=== PATIENT | female | born 1990 | race Caucasian/White ===

== ENCOUNTER 2020-04-09 19:04 | Emergency (ER) | payer OTHER ==
--- NOTE | 2020-04-09 20:02 | ER Document Report ---
ED Medical Screen (RME) - General Chief Complaint: Vaginal Bleeding Stated Complaint: VAGINAL BLEEDING Time Seen by Provider: 04/09/20 19:53 - HPI Notes: 04/09/20 20:01 29-year-old female to the emergency department with complaints of vaginal bleeding that started this afternoon at approximately 3 PM. She states it was light at first and then it got a lot heavier. She is having right-sided pelvic pain with this. She states that she has had 4+ tests at home. She has not seen an [facility]. She states her last menstrual period was on March 08. She is never been before. She has been taking prenatals because she and her partner have been trying to get . I performed a brief medical screening exam on the patient determined that the patient needs further evaluation and management by main side provider. I have placed initial orders to help expedite care. Past Medical History - Social History Chew tobacco use (# tins/day): No Frequency of alcohol use: None Drug Abuse: None Physical Exam - Vital signs Vitals: Temp Pulse Resp BP Pulse Ox 98.4 F 71 20 111/52 L 100 04/09/20 19:59 04/09/20 19:59 04/09/20 19:59 04/09/20 19:59 04/09/20 19:59 Course - Vital Signs Vital signs: Temp Pulse Resp BP Pulse Ox 98.4 F 71 20 111/52 L 100 04/09/20 19:59 04/09/20 19:59 04/09/20 19:59 04/09/20 19:59 04/09/20 19:59
[2020-04-09 20:40] LABS: ABSOLUTE MONOCYTES (AUTO) 0.4 10^3/uL (0.1-1.4); HEMOGLOBIN 11.7 g/dL (12.0-15.5); MEAN CORPUSCULAR HGB CONC 33.1 g/dL (32.0-36.0); TOTAL CELLS COUNTED % (AUTO) 100 %
[2020-04-09 20:45] LABS: ABSOLUTE LYMPHOCYTES (AUTO) 2.3 10^3/uL (0.5-4.7); ABSOLUTE NEUT (AUTO) 3.1 10^3/uL (1.7-8.2); BASOPHILS % (AUTO) 0.4 % (0-2); EOSINOPHILS % (AUTO) 0.8 % (0-6); HEMATOCRIT 35.2 % (36.0-47.0); MEAN CORPUSCULAR HEMOGLOBIN 26.6 pg (27.0-33.4); MEAN CORPUSCULAR VOLUME 80 fl (80-97); MONOCYTES % (AUTO) 6.1 % (3-13); PLATELET COUNT 315 10^3/uL (150-450); RED BLOOD COUNT 4.38 10^6/uL (3.72-5.28); RED CELL DISTRIBUTION WIDTH 13.7 % (11.5-14.0); SEGMENTED NEUTROPHILS % (AUTO) 52.7 % (42-78); WHITE BLOOD COUNT 5.8 10^3/uL (4.0-10.5)
[2020-04-09 21:04] LABS: ALBUMIN 4.4 g/dL (3.5-5.0); ALKALINE PHOSPHATASE 58 U/L (38-126); ANION GAP 8 (5-19); ASPARTATE AMINO TRANSFERASE 39 U/L (14-36); BILIRUBIN,DIRECT 0.2 mg/dL (0.0-0.4); BILIRUBIN,TOTAL 0.4 mg/dL (0.2-1.3); BLOOD UREA NITROGEN 10 mg/dL (7-20); CALCIUM 9.4 mg/dL (8.4-10.2); CARBON DIOXIDE 25 mmol/L (22-30); CHLORIDE 106 mmol/L (98-107); GLUCOSE 95 mg/dL (75-110); TOTAL PROTEIN 7.1 g/dL (6.3-8.2)
--- NOTE | 2020-04-09 21:21 | RADIOLOGY REPORT (SQ) ---
EXAM DESCRIPTION: US TRANSVAGINAL COMPLETED DATE/TME: 04/09/2020 20:00 CLINICAL HISTORY: 29 years, Female, vaginal bleeding, + home test COMPARISON: None TECHNIQUE: Transabdominal and transvaginal images of the pelvis were obtained. Grayscale imaging and Doppler imaging were performed. LIMITATIONS: None. FINDINGS: Uterus measures approximately 7.1 x 4.6 x 3.3 cm and appears within normal limits. There is no intrauterine gestation identified. Endometrial stripe appears relatively homogenous and measures 6 mm in thickness. There is a small amount of fluid within the endocervical canal. Right ovary is nonvisualized, likely obscured by bowel gas. Left ovary measures approximately 2.2 x 1.7 x 1.3 cm and appears within normal limits. There is no evidence of left ovarian torsion on Doppler imaging. No adnexal mass or free pelvic fluid is seen. IMPRESSION: No intrauterine gestation. Endometrial stripe thickness is 6 mm. There is no adnexal mass. There is a small amount of fluid within the endocervical canal, nonspecific. copyright 2010 [employer]- All Rights Reserved
[2020-04-09 21:46] LABS: APPEARANCE,URINE CLEAR; BILIRUBIN,URINE NEGATIVE (NEGATIVE); COLOR,URINE YELLOW; GLUCOSE, URINE NEGATIVE (NEGATIVE); KETONES,URINE NEGATIVE (NEGATIVE); PROTEIN,URINE NEGATIVE (NEGATIVE); URINE SPECIFIC GRAVITY 1.011; UROBILINOGEN,URINE NEGATIVE mg/dL (<2.0)
--- NOTE | 2020-04-09 22:41 | ER Document Report ---
ED General - General Chief Complaint: Vaginal Bleeding Stated Complaint: VAGINAL BLEEDING Time Seen by Provider: 04/09/20 19:53 - HPI Patient complains to provider of: vag bleeding Notes: 29 y/o who reports being AB+ presenting to ED for vaginal bleeding noted today she has had 4 pos home upts with first pos being on wednesday of this past week she denies abd pain, nausea/vomiting, back pain she denies anticoagulant use she denies dizziness or palpitations - Related Data Allergies/Adverse Reactions: No Known Allergies Allergy (Unverified 04/09/20 20:09) Past Medical History - Social History Smoking Status: Never Smoker Chew tobacco use (# tins/day): No Frequency of alcohol use: None Drug Abuse: None Family History: Reviewed & Not Pertinent Patient has homicidal ideation: No Review of Systems - Review of Systems Constitutional: No symptoms reported EENT: No symptoms reported Cardiovascular: No symptoms reported Respiratory: No symptoms reported Gastrointestinal: No symptoms reported Genitourinary: No symptoms reported Female Genitourinary: Vaginal bleeding Musculoskeletal: No symptoms reported Skin: No symptoms reported Hematologic/Lymphatic: No symptoms reported Neurological/Psychological: No symptoms reported Physical Exam - Vital signs Vitals: Temp Pulse Resp BP Pulse Ox 98.4 F 71 20 111/52 L 100 04/09/20 19:59 04/09/20 19:59 04/09/20 19:59 04/09/20 19:59 04/09/20 19:59 Interpretation: Normal - General General appearance: Appears well, Alert - HEENT Head: Normocephalic, Atraumatic Eyes: Normal Pupils: PERRL - Respiratory Respiratory status: No respiratory distress Chest status: Nontender Breath sounds: Normal Chest palpation: Normal - Cardiovascular Rhythm: Regular Heart sounds: Normal auscultation Murmur: No - Abdominal Inspection: Normal Distension: No distension Bowel sounds: Normal Tenderness: Nontender Organomegaly: No organomegaly - Back Back: Normal, Nontender - Extremities General upper extremity: Normal inspection, Nontender, Normal color, Normal ROM, Normal temperature General lower extremity: Normal inspection, Nontender, Normal color, Normal ROM, Normal temperature, Normal weight bearing. No: Wilda's sign - Neurological Neuro grossly intact: Yes Cognition: Normal Orientation: AAOx4 [place] Coma Scale Eye Opening: Spontaneous [place] Coma Scale Verbal: Oriented [place] Coma Scale Motor: Obeys Commands [place] Coma Scale Total: 15 Speech: Normal Motor strength normal: LUE, RUE, LLE, RLE Sensory: Normal - Psychological Associated symptoms: Normal affect, Normal mood - Skin Skin Temperature: Warm Skin Moisture: Dry Skin Color: Normal Course - Re-evaluation Re-evalutation: 04/09/20 22:38 well appearing w/ hcg quant of 2.5 US w/o abnormal findings labs w/ mild anemia likely is miscarrying based on positive quant hcg and h/o home pos upt's given bleeding recommend returning to ED or following up with obgyn (has appt later in the week) for repeat quant hcg testing and re-evaluation recommend sooner return if her symptoms worsen in any way - Vital Signs Vital signs: Temp Pulse Resp BP Pulse Ox 98.4 F 71 20 111/52 L 100 04/09/20 19:59 04/09/20 19:59 04/09/20 19:59 04/09/20 19:59 04/09/20 19:59 - Laboratory Result Diagrams: 04/09/20 20:25 04/09/20 20:25 Laboratory results interpreted by me: 04/09/20 04/09/20 04/09/20 20:25 20:25 21:00 Hgb 11.7 L Hct 35.2 L MCH 26.6 L AST 39 H Urine Blood SMALL H Urine Ascorbic Acid 40 H - Diagnostic Test Radiology reviewed: Reports reviewed Discharge - Discharge Clinical Impression: Vaginal bleeding during Condition: Stable Disposition: HOME, SELF-CARE Instructions: Vaginal Bleeding ([facility]) Additional Instructions: Please follow up with either OBGYN or the ED as discussed for serial quantit ative HCG levels to determine if this is a miscarriage or an ongoing Return to the ED with worsening symptoms or concerns Referrals: DARLENE RIOS MD [ACTIVE STAFF] - Follow up as needed
[2020-04-09 23:36] VITALS: BP 101/60
== END 2020-04-09 23:30 | disposition home or self-care (01) ==
LOC: ER 19:04
DX: O20.9 Hemorrhage in early pregnancy, unspecified (principal); O99.011 Anemia complicating pregnancy, first trimester; D64.9 Anemia, unspecified; O26.891 Other specified pregnancy related conditions, first trimester; R93.89 Abnormal findings on diagnostic imaging of other specified body structures; Z79.899 Other long term (current) drug therapy; Z3A.01 Less than 8 weeks gestation of pregnancy
CPT/HCPCS: 36415; 76817; 80053; 81001; 84702; 85025; 86900; 86901; 93976; 99284